=== PATIENT | female | born 1965 | race African-American/Black ===

== ENCOUNTER 2016-05-18 02:14 | Inpatient (IN) | payer MEDICARE, MEDICAID ==
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
--- NOTE | ~2016-05-18 | PN ---
Unit #: [id number] #: [id number] Patient: PEPPER ZIEGLER [id number] [facility] [address] [place] [address] [id number] MR#: [id number] NAME: PEPPER ZIEGLER ROOM: [facility] Age: 51 Sex: F Admission Date: 05/18/2016 : 1965 Attending Physician: Donal Ziegler M.D. Admitting Physician: Donal Ziegler M.D. Primary Care Physician: Generic Doctor Not In System [facility] PROGRESS NOTES DATE 05/22/2016 DISCUSSION Pepper continues to perseverate on issues such as her missing spectacles, which she believes the hospital obtained for her despite my explanations. She is alert and oriented to person and location only. Her memory concentration are poor. Her thought processes are rambling with ongoing paranoia especially toward her family. ASSESSMENT Schizophrenia, paranoid type. PLAN Continue current treatment plan. Dictated by... Donal Ziegler M.D. [facility]/janey TD: 05/29/2016 10:16 JOB #: [id number] [facility] PROGRESS NOTES Page 1 of 1 X Donal Ziegler MD PROGRESS NOTE
--- NOTE | ~2016-05-18 | PN ---
Unit #: [id number] #: [id number] Patient: PEPPER ZIEGLER [id number] [facility] [address] [place] [address] [id number] I MR#: [id number] NAME: PEPPER ZIEGLER ROOM: [facility] Age: 51 Sex: F Admission Date: 05/18/2016 : 1965 Attending Physician: Donal Ziegler M.D. Admitting Physician: Donal Ziegler M.D. Primary Care Physician: Generic Doctor Not In System [facility] PROGRESS NOTES DATE 05/19/2016 DISCUSSION Pepper has been compliant with her medications but remains quite malodorous, disorganized, and intrusive. She has minimal insight into her condition and continues to deny mental problems, focusing on social and medical issues such as a nonspecific chronic pain and feelings of persecution from her family. She contests the accuracy and applicability of the mental inquest warrant but the process was explained to her. She was alert and oriented to person, location only. Her memory and concentration are poor and her thought processes continue to be rambling and psychotic. ASSESSMENT Schizophrenia paranoid type, calm. PLAN Ibuprofen will be provided p.r.n. for pain and she will continue on her current precautions and medications. Dictated by... Donal Ziegler M.D. [facility]/janey TD: 05/29/2016 09:42 JOB #: [id number] [facility] PROGRESS NOTES Page 1 of 1 X Donal Ziegler MD X PROGRESS NOTE
--- NOTE | ~2016-05-18 | PA ---
Unit #: [id number] #: [id number] Patient: PEPPER ZIEGLER [id number] [place] [address] [id number] MR#: [id number] NAME: PEPPER ZIEGLER ROOM: [facility] Age: 51 Sex: F Admission Date: 05/18/2016 : 1965 Date of Assessment: 05/18/2016 Attending Physician: Donal Ziegler M.D. Admitting Physician: Donal Ziegler M.D. Primary Care Physician: Generic Doctor Not In System PSYCHIATRIC ASSESSMENT DATE OF SERVICE 05/18/2016. INFORMANTS The patient, unreliable; OLOP, reliable; EPS, reliable. CHIEF COMPLAINT Psychosis. HISTORY OF PRESENT ILLNESS Pepper Ziegler is a 51-year-old woman with a history of schizophrenia, who presented to EPS on a mental inquest warrant taken out by her brother. The patient was disorganized and had pressured speech, and was sexually inappropriate and had obviously been noncompliant with her medications and was extremely paranoid. She was unable to contract for safety and was admitted for stabilization. PAST PSYCHIATRIC HISTORY The patient has a long history of schizophrenia per her family and was last at [facility] in March of this year. She has been hospitalized at [facility], [facility] as well as [facility]. She recently received an Invega Sustenna injection and is also on oral Seroquel and Depakote. FAMILY PSYCHIATRIC HISTORY There is no family history of mental illness or substance abuse per available records. SOCIAL HISTORY The patient is on long-term disability, and has been living in her own home, but not caring for her ADLs. She is extremely paranoid and refuses help by her family. PAST MEDICAL HISTORY No chronic medical problems. MEDICATIONS None currently. ALLERGIES Penicillin, codeine, and latex. SUBSTANCE ABUSE HISTORY Unit #: [id number] #: [id number] Patient: PEPPER ZIEGLER None reported. MENTAL STATUS EXAMINATION The patient presented as a disheveled, malodorous woman, who appeared older than her stated age. She stood 5 feet 8 inches tall, weighing 218 pounds. Vital signs; temperature 96.7, pulse 98, respirations 20, and blood pressure 167/86. Her speech was soft, sparse, but easily understood. Her musculoskeletal examination was calm. Her mood was irritable and labile with an angry affect. She was alert and oriented to person and location only. Memory and concentration were fair to poor. Thought processes were extremely disorganized and psychotic. ASSETS AND LIABILITIES The patient has supportive family and current providers. Liabilities include apparent noncompliance with medication and poor self care. ADMITTING DIAGNOSES AXIS I: Schizophrenia, paranoid type, F20.0. AXIS II: No diagnosis. AXIS III: None acute. AXIS IV: AXIS V: PSYCHIATRIC PLAN The patient was admitted and placed on suicide precautions. We will restart her oral medications and confirm the date of her last Invega Sustenna injection, re-administering this as appropriate. She will enroll in psychotherapy groups and activities with a reality based focus. TREATMENT GOALS Resolution of psychosis, improvement in insight, and improvement in coping skills. DISCHARGE PLANNING Follow up with [facility]. ESTIMATED LENGTH OF STAY 5 days. Dictated by... Donal Ziegler M.D. MARTHA/husam TD: 05/26/2016 03:08 JOB #: [id number] Unit #: [id number] #: [id number] Patient: PEPPER ZIEGLER PSYCHIATRIC ASSESSMENT Page 1 of 1 X Donal Ziegler MD X PSYCHIATRIC ASSESSMENT
--- NOTE | ~2016-05-18 | PN ---
Unit #: [id number] #: [id number] Patient: PEPPER ZIEGLER [id number] [facility] [address] [place] [address] [id number] I MR#: [id number] NAME: PEPPER ZIEGLER ROOM: [facility] Age: 51 Sex: F Admission Date: 05/18/2016 : 1965 Attending Physician: Donal Ziegler M.D. Admitting Physician: Donal Ziegler M.D. Primary Care Physician: Generic Doctor Not In System [facility] PROGRESS NOTES DATE 05/20/2016 DISCUSSION Pepper continues to be pleasant and compliant with medications but continues to have poor insight. She tends to be somewhat intrusive on the unit and wanders with peers and staff. She is alert and oriented to person and location only. Memory and concentration are poor. Thought processes are psychotic and disorganized. ASSESSMENT Schizophrenia, paranoid type. PLAN Continue current treatment plan and proceed with MIW process. Dictated by... Suzan Potts/emmanuel TD: 05/21/2016 20:02 JOB #: [id number] [facility] PROGRESS NOTES Page 1 of 1 X Donal Ziegler MD PROGRESS NOTE
--- NOTE | ~2016-05-18 | A ---
[facility] Nutrition Therapy DATE: 05/30/16 Patient: MAXINE NANCE Physician: KIANNA Address: [address] [place] [address] Room/Bed: [address], Zip: [place] [address] Admit Date: 05/18/16 Date of : [birth year] Height: 5 8 Weight: [phone] NUTRITIONAL ASSESSMENT: REASON: LENGTH OF STAY PATIENT ADMITTED FOR PSYCHOSIS PMH: OBESITY, HTN, SCHIZOPHRENIA Anthropometrics: HT: 5'8", WT: 218#, BMI: 218, %IBW: 156 Labs: NO LABS AVAILABLE Meds: SEROQUEL, HALDOL Assessment: CHART REVIEWED, EVENTS NOTED. PATIENT IS A 51 Y/O FEMALE ADMITTED FOR PSYCOSIS. PATIENT WAS BROUGHT IN ON A MIW. ATIENT IS CURRENTLY ON DISABILITY, LIVES IN HER OWN HOME, AND HAS A HX OF ETOH, COCAINE, AND CANNABIS USE. PATIENT IS A POOR HISTORIAN, SHE IS A/O X2, UNABLE TO ANSWER QUESTIONS APPROPRIATELY, AND UNABLE TO COMPLETE ADLS. UPON ADMIT PATIENT WAS UNABLE TO ANSWER NEEDS ASSESSMENT AND HAD BEEN NON-COMPLIANT WITH HER MEDICATIONS. SHE HAS A HX OF INPATIENT PSYCH HOSPITALIZATION. PATIENT CONTINUES TO BE DISORGANIZED, INTRUSIVE, AND EXHIBITING PSYCHOSIS. NURSING REPORTS CONSISTENTLY GOOD PO INTAKES. THERE ARE NO SKIN OR GI ISSUES NOTED ATT. PATIENT IS ON A REGULAR DIET WITH LARGE PORTION ENTREES. Dx: NO NUTRITION DX Intervention: 1. REGULAR DIET, 2. MEDS PER MD, 3. PSYCH Monitoring, Evaluation and Goals: 1. ADEQUATE PO INTAKES >50% OF MEALS 2. PREVENT, CORRECT MICRO/MACRO NUTRIENT DEFICIENCIES MONITOR: WEIGHTS, LABS, PO/FLUID INTAKES Recommendations: 1. CONTINUE REGULAR DIET TOLERATED. RECOMMEND D/CING LARGE PORTION ENTREES D/T NO NUTRITIONAL NEED FOR INCREASED CALORIC INTAKE. IF PATIENT HAS C/O HUNGER, OFFER SNACKS BETWEEN MEALS 2. ENCOURAGE ADEQUATE PO AND FLUID INTAKES PATIENT IS NOT AT NUTRITIONAL RISK ATT [facility] Nutrition Therapy DATE: 05/30/16 Patient: MAXINE NANCE Physician: KIANNA Address: [address] [place] [address] Room/Bed: [address], Zip: [place] [address] Admit Date: 05/18/16 Date of : [birth year] Height: 5 8 Weight: [phone] Respectfully, ROBERTO KRAMER RD, LD [facility] cc: client file
--- NOTE | ~2016-05-18 | PN ---
Unit #: [id number] #: [id number] Patient: PEPPER ZIEGLER [id number] [facility] [address] [place] [address] [id number] I MR#: [id number] NAME: PEPPER ZIEGLER ROOM: [facility] Age: 51 Sex: F Admission Date: 05/18/2016 : 1965 Attending Physician: Donal Ziegler M.D. Admitting Physician: Donal Ziegler M.D. Primary Care Physician: Generic Doctor Not In System [facility] PROGRESS NOTES DATE 05/23/2016 DISCUSSION Pepper continues to perseverate on issues such access to her glasses, paranoia of her family, and other unrelated issues. She is alert and oriented to person, location only with poor memory and concentration. Her thought processes continue to be paranoid and psychotic. ASSESSMENT Schizophrenia paranoid type. PLAN We will continue with her current treatment plan and proceed with the MIW hearing as scheduled this week. Dictated by... Donal Ziegler M.D. [facility]/to TD: 05/29/2016 10:30 JOB #: [id number] [facility] PROGRESS NOTES Page 1 of 1 X Donal Ziegler MD X PROGRESS NOTE
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
== END 2016-05-31 16:00 | disposition home or self-care (01) | DRG 885 ==
LOC: P1S 02:14 → P2L 05-30 17:15
DX: F20.0 Paranoid schizophrenia (principal); Z88.0 Allergy status to penicillin; Z91.040 Latex allergy status